=== PATIENT | male | born 1965 | race Caucasian/White ===

== ENCOUNTER 2020-04-02 13:54 | Emergency (ER) | payer OTHER ==
[~2020-04-02] VITALS: Ht 165.1 cm; Wt 79.5 kg
[2020-04-02] MEDS ORDERED: ONDA4TAB6 PO (15:39)
[2020-04-02] MEDS ORDERED: HYDR-3965 PO (15:39)
[2020-04-02 15:55] VITALS: BP 120/86
== END 2020-04-02 15:51 | disposition home or self-care (01) ==
LOC: ER 13:55
DX: S62.346A Nondisplaced fracture of base of fifth metacarpal bone, right hand, initial encounter for closed fracture (principal); M79.641 Pain in right hand; Z79.899 Other long term (current) drug therapy; X58.XXXA Exposure to other specified factors, initial encounter; Y93.89 Activity, other specified; Y92.89 Other specified places as the place of occurrence of the external cause; Y99.8 Other external cause status
CPT/HCPCS: 29125; 73130; 99283